=== PATIENT | female | born 1955 | race Caucasian/White ===

== ENCOUNTER 2021-10-10 07:53 | Day surgery (SDC) | payer MEDICARE ==
[~2021-10-10] VITALS: Ht 167.6 cm; Wt 90.9 kg
[~2021-10-10 07:53] MED LIST: BREO ELLIPTA 11 EACH INH; COZAAR50 MG PO; FLONASE ALLER15.8 ML; PROZAC20 MG PO; VENTOLIN HFA IN18 GM INH; ZYRTEC10 M3 PO
[2021-10-10 20:57] LABS: BASOPHIL 0.1 % (0-2); EOSINOPHIL 0 % (0-7); HCT 34.9 % (37.0-47.0); HGB 11.2 g/dl (12.5-16.0); LYMPHOCYTE 4.3 % (15-48); MCH 32.3 pg (25.0-31.0); MCHC 32.1 g/dL (32.0-36.0); MCV 100.6 fL (78.0-100.0); MONOCYTE 6.8 % (0-12); MPV 9.9 fL (6.0-9.5); NEUTROPHIL 88.2 % (41-80); NRBC 0; PLT 178 K/uL (150-400); RBC 3.47 M/uL (4.20-5.40); RDW 13.9 % (11.5-14.0); WBC 8.6 K/uL (4.0-10.5)
[2021-10-10 21:13] LABS: BUN/CREAT RATIO (CALC) 16.2 RATIO; CREATININE 0.68 mg/dL (0.51-0.95); POTASSIUM 4.4 mmol/L (3.5-5.1)
[2021-10-11] MEDS ORDERED: PERCOCET 5-3251 EACH PO (11:46)
--- NOTE | 2021-10-11 13:48 | NUR ---
PT GOING DOWN FOR CT WHEN COMPLETED PT WILL BE D/C TO HOME
== END 2021-10-11 16:03 | disposition home or self-care (01) ==
LOC: FAS 07:53 → FMS 11:54 → FAS 10-11 16:03
PROVIDERS: Nurse Practitioner Acute Care
DX: K43.0 Incisional hernia with obstruction, without gangrene (principal); K42.0 Umbilical hernia with obstruction, without gangrene; I10 Essential (primary) hypertension; F41.8 Other specified anxiety disorders; J44.9 Chronic obstructive pulmonary disease, unspecified; E66.8 Other obesity; Z68.31 Body mass index [BMI] 31.0-31.9, adult; Z72.0 Tobacco use
CPT/HCPCS: 36415; 71045; 71260; 80048; 85025; 93005; 94010; 94640; C1713; C1781; J0690; J1100; J1170; J1885; J2250; J2405; J2704; J3010; J7120; Q9967